=== PATIENT | female | born 1985 | race Caucasian/White ===

== ENCOUNTER → 2018-04-10 | Outpatient (CLI) | payer OTHER ==
[~2018-04-10] MED LIST: ALPR-475 PO; CEPH-368; FLUO20CA19 PO; HYDR-3240; IBUP200T49 PO; LEVO50TA5 PO; OXYC-302 PO; SULF1TAB23
[2018-04-10 12:20] LABS: HEMOGLOBIN A1C 5.1 % (4.2-6.3)
[2018-04-10 12:23] LABS: FREE T4 (FREE THYROXINE) 1.17 ng/dL (0.76-1.46); T4 (THYROXINE) 11.6 mcg/dL (4.8-13.9); THYROID STIMULATING HORMONE 0.735 mIU/L (0.358-3.740)
== END | disposition home or self-care (01) ==
LOC: LAB 11:29
PROVIDERS: ATTEND Specialist
DX: N92.5 Other specified irregular menstruation (principal)
CPT/HCPCS: 36415; 82397; 83001; 83002; 83036; 84436; 84439; 84443

== ENCOUNTER → 2018-04-25 | Outpatient (CLI) | payer OTHER | END | disposition home or self-care (01) | LOC: LAB 11:52 | PROVIDERS: ATTEND Specialist | DX: N92.5 Other specified irregular menstruation (principal) | CPT/HCPCS: 36415; 84144 ==